=== PATIENT | female | born 1990 | race Caucasian/White ===

== ENCOUNTER 2023-07-17 09:55 | Outpatient (CLI) | payer OTHER, SELFPAY | END 2023-07-17 09:56 | disposition home or self-care (01) | PROVIDERS: PCP Family Medicine; Visit Provider Family Medicine | DX: Z00.00 Encounter for general adult medical examination without abnormal findings (principal); E55.9 Vitamin D deficiency, unspecified; R53.83 Other fatigue; Z13.6 Encounter for screening for cardiovascular disorders | CPT/HCPCS: 80048; 80061; 82306; 85025 ==

== ENCOUNTER 2025-02-22 13:29 | Outpatient (CLI) | payer OTHER, SELFPAY | END 2025-02-22 13:30 | disposition home or self-care (01) | LOC: FBOREF 13:30 | PROVIDERS: PCP Family Medicine; Visit Provider Family Medicine | DX: E55.9 Vitamin D deficiency, unspecified (principal) | CPT/HCPCS: 82306 ==